=== PATIENT | female | born 1940 | race Caucasian/White ===

== ENCOUNTER → 2018-11-08 | Outpatient (CLI) | payer MEDICARE | END | disposition home or self-care (01) | LOC: LAB 11-06 15:30 | PROVIDERS: ATTEND Internal Medicine Gastroenterology | DX: R19.7 Diarrhea, unspecified (principal) | CPT/HCPCS: 87507 ==

== ENCOUNTER → 2023-04-24 | Outpatient (CLI) | payer MEDICARE | END | disposition home or self-care (01) | LOC: LAB 10:17 | PROVIDERS: ATTEND Physician Assistant | DX: M47.812 Spondylosis without myelopathy or radiculopathy, cervical region (principal); G89.29 Other chronic pain | CPT/HCPCS: 72040; 73030 ==

== ENCOUNTER → 2024-05-29 | Outpatient (CLI) | payer MEDICARE ==
--- NOTE | 2024-05-29 14:40 | NUR ---
MBSS COMPLETED (OUTPATIENT). No aspiration; deep non-transient penetrations with mixed textures and thin liquids via regular sips with no cough response. Recommend regular solids (no mixed textures; small bites), thin liquids (no straws; small, single sips), and pills whole 1 per swallow with pudding or crushed as tolerated. Compensatory strategies: 1. sit upright during oral intake 2. slow oral intake 3. extra dry swallows NECK CUTTER reviewed results and recommendations with patient. NECK CUTTER educated patient on risks and consequences of aspiration. Speech therapy not warranted at this time due to etiology of mild pharyngeal dysphagia possibly related to narrowing of pharyngeal space. Mild dysphagia best managed with modified diet and compensatory strategies. All questions answered. Addendum: 05/29/[address] RASHEED MARTÍNEZ Amended: Links added.
--- NOTE | 2024-05-29 15:52 | HMCIMG ---
MODIFIED BARIUM SWALLOW W CINE REASON: DYSPHAGIA. COMPARISON: None TECHNIQUE: Modified barium swallow study was performed with the referring speech therapist. FINDINGS: Please see procedure report by referring speech therapist. IMPRESSION: Modified barium swallow study.
== END | disposition home or self-care (01) ==
LOC: RAH 12:25
PROVIDERS: ATTEND Internal Medicine
DX: R13.10 Dysphagia, unspecified (principal); R63.8 Other symptoms and signs concerning food and fluid intake
CPT/HCPCS: 74230; 92611